=== PATIENT | female | born 1995 | race Two or more races ===

== ENCOUNTER 2017-04-03 22:59 | Observation (INO) | payer MEDICAID ==
[~2017-04-03] VITALS: Ht 160 cm; Wt 81.6 kg
[2017-04-04] MEDS ORDERED: PREN-88 PO (00:08)
== END 2017-04-04 00:15 | disposition home or self-care (01) ==
LOC: L&D 22:59
PROVIDERS: ADMIT Obstetrics & Gynecology; ATTEND Obstetrics & Gynecology
DX: O26.893 Other specified pregnancy related conditions, third trimester (principal); R10.30 Lower abdominal pain, unspecified; M54.5 Low back pain; Z3A.39 39 weeks gestation of pregnancy
CPT/HCPCS: 99281; G0378

== ENCOUNTER 2018-02-03 10:26 | Emergency (ER) | payer MEDICAID ==
[~2018-02-03] VITALS: Ht 162.6 cm; Wt 68.0 kg
[~2018-02-03 10:26] MED LIST: PREN-88 PO
[2018-02-03 11:20] LABS: CLARITY URINE CLEAR (CLEAR); COLOR URINE YELLOW (YELLOW); KETONES URINE NEGATIVE (NEGATIVE); LEUKOCYTE ESTERASE URINE NEGATIVE (NEGATIVE); NITRITE URINE NEGATIVE (NEGATIVE); OCCULT BLOOD URINE NEGATIVE (NEGATIVE); PROTEIN URINE NEGATIVE (NEGATIVE); SPECIFIC GRAVITY URINE 1.023 (1.005-1.030); UROBILINOGEN URINE 0.2 E.U./dL (0.2-1.0)
[2018-02-03 11:45] VITALS: BP 104/62
== END 2018-02-03 13:31 | disposition home or self-care (01) ==
LOC: ER 11:29
DX: T19.2XXA Foreign body in vulva and vagina, initial encounter (principal); Z98.890 Other specified postprocedural states; X58.XXXA Exposure to other specified factors, initial encounter; Y93.89 Activity, other specified; Y92.013 Bedroom of single-family (private) house as the place of occurrence of the external cause
CPT/HCPCS: 81003; 81025; 99284; Z7610

== ENCOUNTER 2018-04-12 12:15 | Emergency (ER) | payer MEDICAID ==
[~2018-04-12] VITALS: Ht 162.6 cm; Wt 66.0 kg
[2018-04-12 12:30] VITALS: BP 118/80
== END 2018-04-12 14:32 | disposition home or self-care (01) ==
LOC: ER 13:00
DX: R19.6 Halitosis (principal)
CPT/HCPCS: 99281

== ENCOUNTER 2019-09-24 08:56 | Emergency (ER) | payer MEDICAID ==
[~2019-09-24] VITALS: Ht 160 cm; Wt 64.0 kg
[2019-09-24 12:07] VITALS: BP 139/77
== END 2019-09-24 12:07 | disposition home or self-care (01) ==
LOC: ER 08:56
DX: H60.91 Unspecified otitis externa, right ear (principal)
CPT/HCPCS: 99283